=== PATIENT | male | born 1960 | race Caucasian/White ===

== ENCOUNTER 2022-07-08 10:26 | Outpatient (CLI) | payer BC, SELFPAY ==
--- NOTE | 2022-07-08 10:30 | ECG_ITS ---
Measurements Intervals [place] Rate: 67 P: 43 NH: 189 QRS: -30 QRSD: 85 T: -1 QT: 366 QTc: 388 Interpretive Statements SINUS RHYTHM BORDERLINE LEFT AXIS DEVIATION [QRS AXIS < -20] NO PREVIOUS ECG AVAILABLE FOR COMPARISON Electronically Signed On 07-09-2022 13:05:13 CDT by Carlita Foss M.D.
== END 2022-07-08 10:27 | disposition home or self-care (01) ==
LOC: ANHSURGERY 10:30
PROVIDERS: PCP Physician Assistant; Visit Provider Otolaryngology
DX: Z01.810 Encounter for preprocedural cardiovascular examination (principal); I10 Essential (primary) hypertension
CPT/HCPCS: 93005

== ENCOUNTER 2022-07-12 01:45 | Day surgery (SDC) | payer BC, SELFPAY ==
[2022-07-03 08:12] VITALS: BMI 30.7
--- NOTE | 2022-07-03 08:19 | PC.NURSE ---
Report to the Outpatient Waiting Room, entrance under the green pavilion located off [facility], at time _0845_ on date _[id number]_. OR Time: _1045_. Time changes happen often and if your time is changed the preop area will call you the afternoon before. - You and your visitor will be asked to self-screen and do not enter if you have any COVID symptoms. - Only one visitor and NO children visitors are allowed at this time. - The patient visitor is requested to leave or wait in car when not with patient due to restrictions. - A mask is required within the hospital. Patients may have clear liquids (water, carbonated beverages, clear teas, apple juice) until 3 hours prior to surgery with a maximum of 20 ounces. - No food from midnight until time of surgery Take the following medications with a SIP of water the morning of surgery: ___Amlodipine Medications to discontinue per physician Osteo-biflex Date to take last ftrx__[id number] Please no make-up, nail slovak, hairspray, perfume, deodorant, or body powder the day of surgery. No jewelry (including any body piercings) or valuables the day of surgery, leave them at home. Please take a shower or bath the night before, or the morning of, surgery with an antibacterial soap. Wear comfortable, loose fitting clothing. - Jewelry must be removed prior to entering the operating room. Rings and piercings that are not removed may be cut off. - The hospital will not accept responsibility for valuables. - Please leave all valuables, including medications, at home the day of surgery. If you are going home after surgery, a licensed dump truck driver must drive you home. - NO public transportation without another adult. - We recommend that an adult stay with you for 24 hours following discharge. - We also recommend that you do not drive, make important decision, drink alcoholic beverages, or take any drugs that were not prescribed by your health care provider for at least 24 hours after your discharge time. Follow any additional instructions given to you from your surgeon. If you or anyone in your household have experienced Covid symptoms in the past week, please notify your surgeon or the nurse liaison at the phone number below for possible testing. Telephone instructions given to _Patient___and asked if any additional questions and then verbalized understanding. Patient advised to call surgeon office or pre surgery nurse liaison [phone] if any additional questions.
--- NOTE | 2022-07-11 11:42 | PM.IMHP ---
H&P: HPI History of Present Illness Date/Time: 07/11/22 11:42 Chief Complaint: Left neck mass, left neck cyst Narrative: planned surgical procedure Review of Systems Review of Systems: All systems reviewed & are unremarkable except as noted in HPI and below PMFSH Family History Family History Father Cancer Hypertension Mother Cancer Social History Social History Smoking status: Never smoker Alcohol intake: current Drinks per week: 1 Substance use: never Spiritual care concerns: No Meds Home Medications and Allergies Home Medications Medication Instructions Recorded Confirmed Type amlodipine 5 mg tablet 5 mg PO DAILY 06/20/22 07/03/22 History aspirin 81 mg tablet,delayed 81 mg PO DAILY 06/20/22 07/03/22 History release (Adult Aspirin Regimen) lisinopril 20 mg tablet 20 mg PO DAILY 06/20/22 07/03/22 History mupirocin 2 % topical ointment 1 applic topical BID #22 grams 06/20/22 07/03/22 Rx glucosamine-chondroitin 250 mg-200 1 tablet PO DAILY 07/03/22 07/03/22 History mg tablet (Osteo Bi-Flex) Allergies Allergy/AdvReac Type Severity Reaction Status Date / Time Sulfa (Sulfonamide Allergy Unknown Unknown Verified 07/03/22 08:10 Antibiotics) naproxen AdvReac Intermediate Diarrhea Verified 07/03/22 08:10 Exam Narrative: about 3 cm across left-sided submandibular / neck cyst lesion mass remainder of ENT exam normal Assessment and Plan Assessment and plan (1) Dermoid cyst of neck: Code(s): D36.7 - Benign neoplasm of other specified sites Status: Acute Assessment and Plan: plan operating room excision of left-sided neck mass. Risks were discussed including need for drain bleeding infection damage to surrounding structures 1% chance of injury to the marginal mandibular nerve. Damage to any structure during the induction and maintenance of anesthesia. LMA is okay. (2) Neck mass: Code(s): R22.1 - Localized swelling, mass and lump, neck Status: Acute
--- NOTE | 2022-07-12 07:19 | WPDHPUPDATE1 ---
History and Physical Update Update Date/Time: 07/12/22 07:19 History and Physical has been reviewed, including an updated exam of the patient. There are NO changes in the patient's condition. Risks, benefits, and alternatives have been discussed and questions answered. Patient agrees to proceed with procedure.
[2022-07-12 09:59] VITALS: BP 143/92; PULSE 72; RESP 18; TEMP 36.5; O2SAT 97
[2022-07-12] MEDS: LACTATED RINGERS 1,000 ML 30 ML IV CONT (10:13)
--- NOTE | 2022-07-12 11:52 | WPDANESEPPF ---
Anes - Initial Pre Proc Eval Procedure: Operation Date: 07/12/22 11:45 Proposed Procedures p Excision of Left Neck Mass - Cash Chaparro MD Date/Time: 07/12/22 11:52 Surgeon: Cash Chaparro MD Pre Op Diagnosis: left neck mass Patient Data Age: 62 Gender: M Height: 1.8 m Weight: 100 kg Last Vital Signs Temp 36.5 C 07/12/22 09:59 Pulse 72 07/12/22 09:59 Resp 18 07/12/22 09:59 BP 143/92 H 07/12/22 09:59 Pulse Ox 97 07/12/22 09:59 O2 Del Method Room Air 07/12/22 09:59 Allergies Allergy/AdvReac Type Severity Reaction Status Date / Time Sulfa (Sulfonamide Allergy Unknown Unknown Verified 07/12/22 09:57 Antibiotics) naproxen AdvReac Intermediate Diarrhea Verified 07/12/22 09:57 Home Medications Medication Instructions Recorded Confirmed Type amlodipine 5 mg tablet 5 mg PO DAILY 06/20/22 07/12/22 History aspirin 81 mg tablet,delayed 81 mg PO DAILY 06/20/22 07/12/22 History release (Adult Aspirin Regimen) lisinopril 20 mg tablet 20 mg PO DAILY 06/20/22 07/12/22 History mupirocin 2 % topical ointment 1 applic topical BID #22 grams 06/20/22 07/12/22 Rx glucosamine-chondroitin 250 mg-200 1 tablet PO DAILY 07/03/22 07/12/22 History mg tablet (Osteo Bi-Flex) Patient hx anesthesia problems: none Family hx anesthesia problems: none Results Review: All pre-operative results and documents have been reviewed as part of the pre-operative evaluation. [facility] Past Medical History Medical History Hypertension Family History Family History Father Cancer Hypertension Mother Cancer Social History Social History Smoking status: Never smoker Alcohol intake: never Drinks per week: 1 Substance use: never Living arrangements: with family Spiritual care concerns: No Anes - Eval Final PreProcedure Day of Procedure 07/12/22 11:52 Patient weight: obese Heart: regular rate and rhythm Lungs: clear to auscultation Airway: Mallampati scale class II Neurological: alert and oriented Last oral intake: >/= 8 hours ASA classification: II Emergent: no Anesthetic plan: proceed Anesthesia type and monitoring: general LMA and standard monitoring Results Review: All pre-operative results and documents have been reviewed as part of the pre-operative evaluation. Informed Consent: The patient's anesthetic plan and its attendant risks and benefits were discussed with the patient/family/POA. Questions were solicited and answers provided to the satisfaction of the patient/family/POA.
[2022-07-12] MEDS: ceFAZolin 2 GM/D5W 50 ML 2 GM/50 ML BAG IVPB (12:05)
[2022-07-12] MEDS: BUPIVACAINE/EPINEPHRINE 0.25% 50 ML VIAL INFILTRATE (12:26)
[2022-07-12 13:11] VITALS: BP 124/76; PULSE 90; RESP 15; TEMP 36.1; O2SAT 99
[2022-07-12 13:25] VITALS: BP 125/86; PULSE 86; RESP 16; O2SAT 94
[2022-07-12 13:33] VITALS: BP 120/89; PULSE 84
[2022-07-12 14:00] VITALS: BP 118/69; PULSE 72
[2022-07-12 14:30] VITALS: BP 124/79; PULSE 69
--- NOTE | 2022-07-12 14:33 | W.PM.PROC2 ---
Procedure Note - Detailed Date of Procedure 07/12/22 Pre-op Diagnosis left neck mass Post-op Diagnosis Same Procedure Performed Excision of left neck mass Surgeon Cash Chaparro MD Findings large a neck mass excised 3-5 cm consistent with lipoma versus accessory salivary gland tissue located in the region between the parotid and submandibular gland. Separate from these entities though. Marginal marginal mandibular nerve seen intact following procedure left lip moved facial nerve worked following procedures well. Minimal blood loss if any. Description of Procedure Patient identified consent verified. Patient brought operating. Time-out performed. General anesthesia induced LMA secured patient prepped draped 2nd time-out performed. Incision drawn 2-3 finger breaths, 2 finger breaths below the angle of the mandible. 3 cm incision made following injection of 1 cc 1% lidocaine 1 100,000 parts epinephrine deep to a pre drawn surgical incision. Incision incision made with 15 blade. This was through the dermis. Blunt dissection was then carried through the platysma around the lesion the lesion was larger than anticipated the marginal mandibular nerve was identified superior and superficial to the lesion. It was intact. The lesion was dissected with blunt dissection any very small vessels were cauterized with Bovyandy amanda with bipolar electrocautery at a setting of 5. Lesion was easily removed no bleeding no saliva noted. The wound was then copiously irrigated with sterile normal saline again no fluid was noted in the wound bed the deep layers were closed with 3-0 interrupted Vicryl sutures the dermis was closed with 4-0 interrupted Vicryl sutures. The skin was glued is it was completely approximated. Patient tolerated the procedure very well. I performed all dictated portions. Blood loss 1 cc. Care the patient given Anesthesiology, patient taken to PACU. Estimated Blood Loss 1 Drains No Packing No Pathology Yes Complications No immediate complications Condition Stable Disposition PACU
== END 2022-07-12 14:45 | disposition home or self-care (01) ==
PROVIDERS: PCP Physician Assistant; Visit Provider Otolaryngology
PROC: (CPT 21556; principal; 2022-07-12 11:45)
DX: R22.1 Localized swelling, mass and lump, neck (principal); Z79.82 Long term (current) use of aspirin; I10 Essential (primary) hypertension; E66.9 Obesity, unspecified; Z68.30 Body mass index [BMI] 30.0-30.9, adult
CPT/HCPCS: 21556; 88304; J0690; J1100; J2250; J2405; J2704; J3010; J7120

== ENCOUNTER 2025-06-22 07:42 | Outpatient (CLI) | payer MEDICARE, BC, SELFPAY ==
--- OUTSIDE RECORDS SUMMARY | 2025-06-22 07:48 | XMS_ITS | Clinical Summary ---
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 Gender Identity Not on file Sexual Orientation Not on file Plan of Treatment Health Maintenance Due Date Last Done Comments Colorectal Cancer Screening Colonoscopy (10 Years) 1960 Hepatitis C 1977 DTaP, Tdap and Td Vaccines ( 1 - Tdap) 1978 Pneumococcal Vaccine: 50+ Ye ars (1 of 1 - PCV) 2009 Zoster Vaccines (1 of 2) 2009 COVID-19 Vaccine (1 - 2023-2 5 season) 2025 RSV Immunization or 60+ Years (1 - 1-dose 75+ series) 2034 Meningococcal B Vaccine Aged Out No l onger eligible based on patient's age to complete this topic Meningococcal Vaccine Aged Out No agnes shahnaz eligible based on patient's age to complete this topic RSV Immunizations Under 20 Months Aged Out No longer eligible based on patient's age to complete this topic
--- OUTSIDE RECORDS SUMMARY | 2025-06-22 07:48 | XMS_ITS | Encounter Summary ---
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
== END 2025-06-22 07:43 | disposition home or self-care (01) ==
PROVIDERS: PCP Physician Assistant; Visit Provider Otolaryngology
DX: H90.3 Sensorineural hearing loss, bilateral (principal); H93.19 Tinnitus, unspecified ear
CPT/HCPCS: 92557; 92567